=== PATIENT | male | born 1970 | race Two or more races ===

== ENCOUNTER → 2017-12-28 | Emergency (ER) | payer OTHER ==
[~2017-12-28] VITALS: Ht 182.9 cm; Wt 95.3 kg
[~2017-12-28] MED LIST: AVAPRO75 MG; FORTAMET500 MG; HYDROCHLOROTH12.5 M1
== END | disposition home or self-care (01) ==
LOC: ER 17:53
DX: R07.89 Other chest pain (principal); K52.9 Noninfective gastroenteritis and colitis, unspecified